=== PATIENT | male | born 2000 | race Caucasian/White ===

== ENCOUNTER 2024-02-01 16:46 | Emergency (ER) | payer SELFPAY ==
[~2024-02-01] VITALS: Ht 177.8 cm; Wt 82.0 kg
[2024-02-01 16:48] VITALS: O2SAT 99
[2024-02-01] MEDS: KETOROLAC 30MG/ML VIAL IM ONE (17:58)
[2024-02-01] MEDS: HYDROCODONE/ACETAMINOPHEN 5/325MG TABLET PO ONE (17:59)
[2024-02-01] MEDS ORDERED: HYDR-4001 MT (18:13)
[2024-02-01] MEDS ORDERED: IBUP-2030 MT (18:13)
[2024-02-01 20:03] VITALS: BP 121/72; PULSE 71; RESP 18; TEMP 97.8
== END 2024-02-01 20:06 | disposition home or self-care (01) ==
LOC: ER 16:46
DX: S82.51XA Displaced fracture of medial malleolus of right tibia, initial encounter for closed fracture (principal); S82.451A Displaced comminuted fracture of shaft of right fibula, initial encounter for closed fracture; S93.491A Sprain of other ligament of right ankle, initial encounter; Z88.2 Allergy status to sulfonamides; W18.39XA Other fall on same level, initial encounter; Y93.89 Activity, other specified; Y92.89 Other specified places as the place of occurrence of the external cause; Y99.8 Other external cause status
CPT/HCPCS: 73590; 73600; 73620; 29505; 96372; 99284; J1885; Z7610